=== PATIENT | female | born 1975 | race Asian ===

== ENCOUNTER 2018-04-17 17:33 | Emergency (ER) | payer OTHER ==
[2018-04-17] MEDS ORDERED: AMOX/CLAV 875 MG/125 MG TABLET PO STA (18:42)
[2018-04-17] MEDS ORDERED: BUFFERED LIDOCAINE 10 ML SYRINGE SUBQ STA (18:47)
--- NOTE | 2018-04-17 18:48 | ED Physician Documentation ---
PD HPI UPPER EXT INJURY - Stated complaint Stated Complaint: DOGBITE - Chief complaint Chief Complaint: Wound - History obtained from History obtained from: Patient - History of Present Illness Location: Left (This is a very pleasant 43-year-old right-handed woman who is up-to-date on tetanus, her own dog bit her at the base of the palmar aspect of the left second finger at home tonight. She is insensate on the ulnar side of that digit. No other injuries.) Review of Systems Constitutional: reports: Reviewed and negative Throat: reports: Reviewed and negative Cardiac: reports: Reviewed and negative Respiratory: reports: Reviewed and negative PD PAST MEDICAL HISTORY - Present Medications Home Medications: Ambulatory Orders Medication Instructions Recorded Confirmed Amox/Clav 875/125 [Augmentin] 1 each PO Q12H #14 tablet 04/17/18 Ibuprofen 04/17/18 - Allergies Allergies/Adverse Reactions: Allergies Allergy/AdvReac Type Severity Reaction Status Date / Time No Known Drug Allergies Allergy Verified 04/17/18 17:43 PD ED PE NORMAL - Vitals Vital signs reviewed: Yes - General General: Alert and oriented X 3, No acute distress - Extremities Extremities: Other (She has a 2 cm deep laceration on the palmar side of the MCP of the left second finger with intact flexion strength but is insensate on the ulnar side of that digit.) - Neuro Neuro: Alert and oriented X 3, Normal speech - Psych Psych: Normal mood, Normal affect Results - Vitals Vitals: Vital Signs - 24 hr 04/17/18 17:40 Temperature 37.0 C Heart Rate 82 Respiratory 16 Rate Blood Pressure 147/103 H O2 Saturation 97 Oxygen O2 Source Room air Procedures - Laceration (location) L hand Length in cm: 2 Wound type: Linear Neurovascular status: Motor intact. 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 clinic should be calling you by mid week to arrange for follow- up in their clinic. If you have not heard from them by Friday, call [phone] to arrange the appointment. Your blood pressure was elevated today on check into the emergency department. This does not mean that you have hypertension, it is a common phenomenon to come to the emergency department and have elevated blood pressure. I recommend that you see your primary care physician within the week to have it rechecked when you are feeling better.
[2018-04-17] MEDS ORDERED: BUFFERED LIDOCAINE 10 ML SYRINGE ONE (19:10)
--- NOTE | 2018-04-17 19:22 | XRAY Report ---
Reason: finger injury Procedure Date: 04/17/2018 Accession Number: [id number] / [id number] Procedure: XR - Finger(s) LT CPT Code: FULL RESULT: EXAM: LEFT SECOND DIGIT RADIOGRAPHY EXAM DATE: 04/17/2018 06:51 PM. CLINICAL HISTORY: Trauma, pain. COMPARISON: None. TECHNIQUE: 3 views. FINDINGS: Bones: Normal. No fracture or bone lesion. Joints: Normal. No subluxations. Soft Tissues: Mild soft tissue swelling. No foreign body. IMPRESSION: Soft tissue swelling. RADIA
[2018-04-17 19:34] VITALS: BP 151/87
== END 2018-04-17 19:40 | disposition home or self-care (01) ==
LOC: ED 17:33
DX: S61.452A Open bite of left hand, initial encounter (principal); S64.493A Injury of digital nerve of left middle finger, initial encounter; W54.0XXA Bitten by dog, initial encounter
CPT/HCPCS: 12001; 73140; 99283; A9270

== ENCOUNTER 2021-05-10 08:28 | Outpatient (CLI) | payer OTHER ==
--- NOTE | 2021-05-11 08:16 | Mammography Report ---
BILATERAL DIGITAL SCREENING MAMMOGRAM 3D/2D: 05/10/2021 CLINICAL: Routine screening. Comparison is made to exams dated: 04/22/2018 mammogram and 09/18/2016 mammogram - [facility]. The tissue of both breasts is heterogeneously dense. This may lower the sensitivity of m ammography. No significant masses, calcifications, or other findings are seen in either breast. There has been no significant interval change. IMPRESSION: NEGATIVE There is no mammographic evidence of malignancy. A 1 year screening mammogram is recommended. This exam was interpreted at Station ID: [id number]. NOTE: For mammograms, a report in lay terms will be sent to the patient. Approximately 15% of breast malignancies will not be visualized mammographically. In the management of a palpable breast mass, a negative mammogram must not discourage biopsy of a clinically suspicious lesion. Electronically Signed By: Wendy perry/[email or web address]:05/10/2021 12:02:08 ACR BI-RADS Category 1: Negative 3341F PARENCHYMAL PATTERN: (D) - The breast(s) demonstrate(s) heterogeneously dense fibroglandular isha diaz. BI-RADS CATEGORY: (1) - 1 RECOMMENDATION: (ANNUAL) - Recommend routine annual screening mammography. [id number] 1 year screening LATERALITY: (B)
== END 2021-05-10 08:29 | disposition home or self-care (01) ==
LOC: DI 08:28
PROVIDERS: ATTEND Nurse Practitioner Family
DX: Z12.31 Encounter for screening mammogram for malignant neoplasm of breast (principal)

== ENCOUNTER 2022-05-13 13:18 | Outpatient (CLI) | payer OTHER ==
--- NOTE | 2022-05-14 10:46 | Mammography Report ---
BILATERAL DIGITAL SCREENING MAMMOGRAM 3D/2D: 05/13/2022 CLINICAL: Routine screening. Comparison is made to exams dated: 05/10/2021 mammogram, 04/22/2018 mammogram, and 09/18/2016 mammogr am - [facility]. Both breasts are heterogeneously dense, which may obscure small masses (category c / 51-75% glandular tissue). No significant masses, calcifications, or other findings are seen in either breast. There has been no significant interval change. IMPRESSION: NEGATIVE There is no mammographic evidence of malignancy. A 1 year screening mammogram is recommended. Based on the Tyrer Cuzick model (a risk assessment model) the patients lifetime risk is 13.2% and he r 10 year risk is 3.0%. According to the ACR, ACS, and NCCN guidelines, an annual breast MRI exam sonia ng with mammogram is recommended if the patients lifetime risk is 20% or greater. This exam was interpreted at Station ID: [id number]. NOTE: For mammograms, a report in lay terms will be sent to the patient. Approximately 15% of breast malignancies will not be visualized mammographically. In the management of a palpable breast mass, a negative mammogram must not discourage biopsy of a clinically suspicious lesion. Electronically Signed By: Irvin Dean M.D. acr/penrad:05/13/2022 17:20:57 ACR BI-RADS Category 1: Negative 3341F PARENCHYMAL PATTERN: (D) - The breast(s) demonstrate(s) heterogeneously dense fibroglandular parskylay ma. BI-RADS CATEGORY: (1) - 1 RECOMMENDATION: (ANNUAL) - Recommend routine annual screening mammography. [id number] 1 year screening LATERALITY: (B)
== END 2022-05-13 13:19 | disposition home or self-care (01) ==
LOC: DI.N 13:18
PROVIDERS: ATTEND Nurse Practitioner Acute Care
DX: Z12.31 Encounter for screening mammogram for malignant neoplasm of breast (principal)

== ENCOUNTER 2022-11-11 09:40 | Emergency (ER) | payer OTHER ==
--- NOTE | 2022-11-11 09:55 | ED Physician Documentation ---
PD HPI SKIN - Stated complaint Stated Complaint: RASH,TINGLING,BLISTERS - Chief complaint Chief Complaint: General - History obtained from History obtained from: Patient - History of Present Illness Timing - onset: How many days ago (3-4) Timing - duration: Days (3-4) Timing - details: Gradual onset, Still present Location: LLE (Onset 4 days ago of pain in the left lower back radiating around to the left hip. It then had burning feeling in today noted onset of blisters in that area. 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 - Present Medications Home Medications: Ambulatory Orders Medication Instructions Recorded Confirmed Lidocaine Patch 5% [Lidoderm Patch] 1 patch TOP DAILY PRN #10 patch 11/11/22 Naproxen Sodium [Aleve] 220 mg PO DAILY 11/11/22 11/11/22 Valacyclovir HCl [Valtrex] 1,000 mg PO TID 7 Days #20 tablet 11/11/22 dexAMETHasone [Decadron] 4 mg PO DAILY #7 tablet 11/11/22 oxyCODONE [Roxicodone] 5 mg PO Q6H PRN #20 tablet 11/11/22 - Allergies Allergies/Adverse Reactions: Allergies Allergy/AdvReac Type Severity Reaction Status Date / Time No Known Drug Allergies Allergy Verified 11/11/22 09:48 - Social History Does the pt smoke?: No Smoking Status: Never smoker Does the pt drink ETOH?: No Does the pt have substance abuse?: No - Immunizations Immunizations are current?: Yes - POLST Patient has POLST: No PD ED PE NORMAL - Vitals Vital signs reviewed: Yes - General General: Alert and oriented X 3, No acute distress, Well developed/nourished - Derm Derm: Normal color, Warm and dry, Other (The patient has a patterned patchy vesicular rash from the upper lumbar area left side wrapping around to the left upper thigh and lower abdomen consistent with shingles) Results - Vitals Vitals: Vital Signs - 24 hr 11/11/22 11/11/22 09:48 10:35 Temperature 36.5 C 36.7 C Heart Rate 80 80 Respiratory 18 20 Rate Blood Pressure 148/82 H 148/96 H O2 Saturation 100 99 Oxygen O2 Source Room air PD Medical Decision Making - ED course Complexity details: considered differential (The onset progression and pattern of symptoms are consistent with shingles. We will treat accordingly.), d/w patient Departure - Departure Disposition: Home, Self Care Clinical Impression: Shingles outbreak Qualifiers: Herpes zoster complications: without complications Qualified Code(s): B02.9 - Zoster without complications Condition: Stable Record reviewed to determine appropriate education?: Yes Instructions: ED Shingles Prescriptions: dexAMETHasone [Decadron] 4 mg PO DAILY #7 tablet Lidocaine Patch 5% [Lidoderm Patch] 1 patch TOP DAILY PRN #10 patch PRN Reason: pain oxyCODONE [Roxicodone] 5 mg PO Q6H PRN #20 tablet PRN Reason: Pain Valacyclovir HCl [Valtrex] 1,000 mg PO TID 7 Days #20 tablet Comments: This looks and acts like shingles. It appears to be in a L1 or L2 nerve root distribution. We we will try to impact the severity and duration of this with a combination of antiviral medication (valacyclovir 1000 mg 3 times a day with food for a week). Also to decrease the nerve inflammation, Decadron steroid daily for a week. Medications that impact on nerve pain may be helpful as well. As you have Neurontin at home for sleep, I would just suggest using in the range of 300 mg daily over the next 7 to 10 days. For the pain itself, you can try lidocaine in the blisters area and a lidocaine patch along the low back nerve root area. Additionally Tylenol 650 mg 4 times daily regularly for the next several days to week and add oxycodone every 4-6 hours if needed for worse pain. This should taper down over the next few days with the medications but it can take several weeks for improvement initially of the rash and then the nerve pain subsequently. I sent your prescriptions to the [facility] pharmacy in [place]. I am prescribing a short course of narcotic pain medication for you. These are potentially dangerous and addictive medications that should be used carefully. These medications may constipate you. Take an fhoe-vcz-dgmwmnt stool softener such as docusate twice daily with plenty of water while taking these medications. If you go 24 hours without a bowel movement, take tlfw-nlq-dhtndgz MiraLAX, per package instructions. Do not drink or drive while taking these medications. If you received narcotic or sedating medications while in the emergency department do not drive for 24 hours. Store this medication in a safe, secure place and out of reach of children. It is a violation of federal law to give or sell this medication to another person or to use in a manner other than prescribed. The ED will not refill narcotic prescriptions, including prescriptions lost or stolen. You can dispose of unwanted medications at the [facility]'s office or at several pharmacies such as [facility]. Discharge Date/Time: 11/11/22 10:35
[2022-11-11] MEDS ORDERED: oxyCODONE 5 MG TABLET PO STA (10:20)
[2022-11-11 10:36] VITALS: BP 148/96
== END 2022-11-11 10:35 | disposition home or self-care (01) ==
LOC: ED 09:40
DX: B02.9 Zoster without complications (principal)
CPT/HCPCS: 99282; 99283; A9270

== ENCOUNTER 2023-06-02 10:11 | Outpatient (CLI) | payer OTHER ==
--- NOTE | 2023-06-02 15:55 | Ultrasound Report ---
PROCEDURE: Pelvic w/Transvaginal INDICATIONS: OVARIAN CYST TECHNIQUE: Real-time scanning was performed of the pelvic organs, with image documentation. Additional endovagi nal scanning was necessary due to incomplete visualization of the adnexal and endometrial structures by transabdominal scanning. COMPARISON: 01/11/2020 and 03/30/2019. FINDINGS: Uterus: Patient is status post prior hysterectomy. No gross abnormality is seen in vaginal cuff regio n. Ovaries: The right ovary measures 2.4 x 2 x 2.5 cm, with a calculated ovarian volume of 6.3 cc. The left ovary measures 2.5 x 1.5 x 1.4 cm, with a calculated ovarian volume of 2.7 cc. There is a 1.8 x 1.7 x 1.4 cm simple appearing cyst in right ovary. Less than 12 follicles can be seen in each ovary. No adnexal masses are seen. No cystic lesions measuring greater than 3 cm. Other: No pathologic free abdominal or pelvic fluid. IMPRESSION: 1. Prior hysterectomy. No abnormality is seen in vaginal cuff region. 2. Simple appearing cyst in right ovary. No solid-appearing ovarian lesion. No evidence of ovarian to rsion. Reviewed by: Tarun Robins MD on 06/02/2023 3:54 PM PST Approved by: Tarun Robins MD on 06/02/2023 3:54 PM PST Station ID: [id number]
== END 2023-06-02 10:12 | disposition home or self-care (01) ==
LOC: DI 10:11
PROVIDERS: ATTEND Nurse Practitioner Family
DX: N83.291 Other ovarian cyst, right side (principal)

== ENCOUNTER 2023-06-05 08:47 | Outpatient (CLI) | payer OTHER ==
--- NOTE | 2023-06-06 11:34 | Mammography Report ---
BILATERAL DIGITAL SCREENING MAMMOGRAM 3D/2D: 06/05/2023 CLINICAL: Routine screening. Comparison is made to exams dated: 05/13/2022 mammogram, 05/10/2021 mammogram, and 04/22/2018 mammog [facility]. Both breasts are heterogeneously dense, which may obscure small masses (category c / 51-75% glandular tissue). No significant masses, calcifications, or other findings are seen in either breast. There has been no significant interval change. IMPRESSION: NEGATIVE There is no mammographic evidence of malignancy. A 1 year screening mammogram is recommended. Based on the Tyrer Cuzick model (a risk assessment model) the patients lifetime risk is 11.0% and he r 10 year risk is 2.6%. According to the ACR, ACS, and NCCN guidelines, an annual breast MRI exam sonia ng with mammogram is recommended if the patients lifetime risk is 20% or greater. This exam was interpreted at Station ID: [id number]. NOTE: For mammograms, a report in lay terms will be sent to the patient. Approximately 15% of breast malignancies will not be visualized mammographically. In the management of a palpable breast mass, a negative mammogram must not discourage biopsy of a clinically suspicious lesion. Electronically Signed By: Benoit marquez/james:06/05/2023 11:54:12 letter sent: No_Letter ACR BI-RADS Category 1: Negative 3341F PARENCHYMAL PATTERN: (D) - The breast(s) demonstrate(s) heterogeneously dense fibroglandular isha diaz. BI-RADS CATEGORY: (1) - 1 Mammogram [id number] 1 year screening LATERALITY: (B)
== END 2023-06-05 08:48 | disposition home or self-care (01) ==
LOC: DI.N 08:47
PROVIDERS: ATTEND Nurse Practitioner Family
DX: Z12.31 Encounter for screening mammogram for malignant neoplasm of breast (principal); R92.333 Mammographic heterogeneous density, bilateral breasts

== ENCOUNTER 2023-12-01 19:36 | Emergency (ER) | payer OTHER ==
--- NOTE | 2023-12-01 21:07 | ED Physician Documentation ---
History of Present Illness - Stated complaint Stated Complaint: R SHOULDER PX - Chief complaint Chief Complaint: Ext Problem - History obtained from History obtained from: Patient - History of Present Illness Timing: Other (6 months) Pain level max: 9 Pain level now: 7 - Additonal information Additional information: Patient with right shoulder pain ongoing for the past several months. She states that she is very active and that she has most of her pain with raising her arm above 90. The pain is worse with the movement. No swelling. Has a history of a rotator cuff injury in the past. No numbness or tingling. No fevers. No IVDA. Here for increased pain. 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 - Present Medications Home Medications: Ambulatory Orders Medication Instructions Recorded Confirmed Lidocaine Patch 5% [Lidoderm Patch] 1 patch TOP DAILY PRN #10 patch 11/11/22 Naproxen Sodium [Aleve] 220 mg PO DAILY 11/11/22 11/11/22 Valacyclovir HCl [Valtrex] 1,000 mg PO TID 7 Days #20 tablet 11/11/22 dexAMETHasone [Decadron] 4 mg PO DAILY #7 tablet 11/11/22 oxyCODONE [Roxicodone] 5 mg PO Q6H PRN #20 tablet 11/11/22 Meloxicam [Mobic] 7.5 mg PO BID PRN #20 tablet 12/01/23 Oxycodone HCl/Acetaminophen 1 - 2 each PO Q6H PRN #14 tablet 12/01/23 [Percocet 5-325 mg Tablet] MDD 6 tabs - Allergies Allergies/Adverse Reactions: Allergies Allergy/AdvReac Type Severity Reaction Status Date / Time No Known Drug Allergies Allergy Verified 12/01/23 19:48 - Social History Does the pt smoke?: No Smoking Status: Never smoker Does the pt drink ETOH?: No Does the pt have substance abuse?: No - Immunizations Immunizations are current?: Yes - POLST Patient has POLST: No PD ED PE NORMAL - Vitals Vital signs reviewed: Yes - General General: Alert and oriented X 3, No acute distress, Well developed/nourished - HEENT HEENT: Moist mucous membranes - Neck Neck: Supple, no meningeal sign, No bony TTP - Cardiac Cardiac: RRR - Respiratory Respiratory: No respiratory distress, Clear bilaterally - Derm Derm: Warm and dry - Extremities Extremities: Other (R shoulder - limited ROM 2/2 pain. TTP ant glenohumeral joint line. NVI inc axillary nerve. Pain inc with abduction booker >90 deg also with ext rotation. ) - Neuro Neuro: Alert and oriented X 3 - Psych Psych: Normal mood, Normal affect Results - Vitals Vitals: Oxygen O2 Source Room air PD Medical Decision Making - ED course Complexity details: considered differential, d/w patient ED course: Patient with an examination consistent with a rotator cuff injury. Has had x- rays in the past that were negative. No new injury. No indication for new x-rays at this time. We will prescribe pain medication for Home. We will have her utilize a rotator cuff brace. Will have her follow up with her doctor and or orthopedics for further care. NVI Patient counseled regarding signs and symptoms for which I believe an urgent re-evaluation would be necessary. Patient with good understanding of and agreement to plan and is comfortable going home at this time. This document was made in part using voice recognition software. While efforts are made to proofread this document, sound alike and grammatical errors may occur. Departure - Departure Disposition: 01 Home, Self Care Clinical Impression: Rotator cuff tendinitis Qualifiers: Laterality: right Qualified Code(s): M75.81 - Other shoulder lesions, right shoulder Condition: Good Instructions: ED Torn Rotator Cuff, ED Tendinitis Rotator Cuff Follow-Up: Orthopedic Care [Provider Group] Prescriptions: Meloxicam [Mobic] 7.5 mg PO BID PRN #20 tablet PRN Reason: Pain Oxycodone HCl/Acetaminophen [Percocet 5-325 mg Tablet] 1 - 2 each PO Q6H PRN #14 tablet MDD 6 tabs PRN Reason: pain Comments: Your prescription was sent to [facility] in [place]. You can use the medication as needed for pain. The meloxicam as an anti-inflammatory, the oxycodone is an opiate. These were both sent to [facility] in [place]. It is recommended that you follow-up with your doctor for further care. You would likely benefit from an MRI of your shoulder. It is likely that you have a rotator cuff tear and tendinitis causing increasing pain. You would benefit from a referral to an orthopedist as well. Please return if you worsen. As we discussed, you can also use a shoulder brace/rotator cuff brace. This can be found on [employer]. I am prescribing a short course of narcotic pain medication for you. These are potentially dangerous and addictive medications that should be used carefully. These medications may constipate you. Take an vzow-ake-ohydpwj stool softener (docusate) twice daily with plenty of water while taking these medications. If you go 24 hours without a bowel movement, take kbim-cgw-[id number] miralax, per package instructions. Do not drink or drive while taking these medications. If you received narcotic or sedating medications while in the emergency department, do not drive for 24 hours. Store this medication in a safe, secure place and out of reach of children. It is a violation of federal law to give or sell this medication to another person or to use in a manner other than prescribed. The ED will not refill narcotic prescriptions, including prescriptions lost or stolen. To dispose of unwanted medications: 1. [facility] at [address] in [place] has a medication drop box. They accept prescription medications (in pill form) Friday through Friday 9:00 a.m. to 5:00 p.m. 2. The [employer] accepts prescription medications (in pill form only) for disposal year round. Call for more information. 3. Contact the [facility] for the next [facility] sponsored prescription drug collection event. , [phone], or [phone]; Forms: PCP List Discharge Date/Time: 12/01/23 21:31
[2023-12-01] MEDS: oxyCODONE 5 MG TABLET PO STA (21:29)
[2023-12-01 21:36] VITALS: BP 112/68; O2SAT 99
== END 2023-12-01 21:31 | disposition home or self-care (01) ==
LOC: ED 19:36
DX: M75.81 Other shoulder lesions, right shoulder (principal); Z79.899 Other long term (current) drug therapy
CPT/HCPCS: 99283